=== PATIENT | female | born 1990 | race Two or more races ===

== ENCOUNTER 2017-02-21 18:23 | Emergency (ER) | payer SELFPAY ==
[~2017-02-21] VITALS: Ht 167.6 cm; Wt 58.1 kg
[2017-02-21 18:54] LABS: APPEARANCE,URINE CLEAR; KETONES,URINE NEGATIVE (NEGATIVE); LEUKOCYTE ESTERASE ,URINE 1+ (NEGATIVE); NITRITE,URINE NEGATIVE (NEGATIVE); PH,URINE 5 (4.5-8.0); PROTEIN,URINE NEGATIVE (NEGATIVE); UROBILINOGEN,URINE NORMAL MG/DL (0.0-1.0)
[2017-02-21 18:59] LABS: RBC,URINE 0-2 /HPF (0 - 2); SQUAMOUS EPITHELIAL CELL,UR FEW /LPF (NONE/OCC)
[2017-02-21 19:00] LABS: BACTERIA,URINE FEW /HPF
[2017-02-21] MEDS ORDERED: NITROFURANTOIN100 M2 ORAL (19:14)
[2017-02-21 19:15] VITALS: BP 120/80
--- NOTE | 2017-02-22 14:20 | Emergency Room Report ---
History of Present Illness General Chief Complaint: Pelvic Pain Source: Patient Present Illness HPI [id number] presents with dysuria, urinary discharge for 1-2 days Assoc with polyuria Denies abd pain, nausea/vomiting, diarrhea, fever/chills Denies previous surgery, ovarian cyst Not sexually active never had UTI previously Allergies: Coded Allergies: No Known Allergies (Unverified , 02/21/17) Patient History Past Medical History: none Past Surgical History: none Pertinent Family History: none Social History: Denies: smoking, alcohol use, drug use Last Menstrual Period: 02/08/17 Now: No Immunizations: UTD Reviewed Nursing Documentation: PMH: Agreed, PSxH: Agreed Nursing Documentation-PMH Past Medical History: No Stated History Review of Systems All Other Systems: negative except mentioned in HPI Physical Exam Vital Signs Date Time Temp Pulse Resp B/P (MAP) Pulse Ox O2 Delivery O2 Flow Rate FiO2 02/21/17 18:27 98.6 87 14 125/77 97 Room Air Sp02 EP Interpretation: reviewed, normal General Appearance: normal inspection, well appearing, no apparent distress, alert, GCS 15, non-toxic Head: normocephalic, atraumatic Eyes: bilateral eye PERRL, bilateral eye EOMI ENT: normal ENT inspection, hearing grossly normal, normal voice Neck: normal inspection, full range of motion, supple, no bony tend Respiratory: normal inspection, lungs clear, normal breath sounds, no respiratory distress, no retraction, no wheezing Cardiovascular #1: regular rate, rhythm, no edema Gastrointestinal: normal inspection, normal bowel sounds, non tender, soft, no guarding, no hernia Genitourinary: no CVA tenderness Musculoskeletal: normal inspection, back normal, normal range of motion, Heidi' s Sign negative Neurologic: normal inspection, alert, oriented x3, responsive, 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, motor strength/tone normal, speech normal Psychiatric: normal inspection, judgement/insight normal, mood/affect normal Skin: normal inspection, normal color, no rash Medical Decision Making Diagnostic Impression: Primary Impression: Dysuria ER Course Symptomatic dysuria UA with + LE Will tx based on symptoms for UTI Urine preg negative Rx Macrobid PMD followup as needed Last Vital Signs Date Time Temp Pulse Resp B/P (MAP) Pulse Ox O2 Delivery O2 Flow Rate FiO2 02/21/17 19:15 80 20 120/80 99 Room Air 02/21/17 19:15 98.9 Status: improved Disposition: HOME, SELF-CARE Condition: Improved Scripts Nitrofurantoin Monohyd/M-Cryst* (MACROBID 100 MG*) 100 Mg Capsule 100 MG ORAL EVERY 12 HOURS for 7 Days, #14 CAP Prov: CLAUDIO ROTH M.D. 02/21/17 CLAUDIO ROTH M.D. Feb 22, 2017 14:20
== END 2017-02-21 19:15 | disposition home or self-care (01) ==
LOC: EMR 19:06
DX: R30.0 Dysuria (principal)
CPT/HCPCS: 81003; 81025; 99283